=== PATIENT | male | born 1980 | race African-American/Black ===

== ENCOUNTER 2017-03-15 19:20 | Emergency (ER) | payer OTHER ==
[~2017-03-15] VITALS: Ht 180.3 cm; Wt 90.7 kg
[~2017-03-15 19:20] MED LIST: NOHOMEMEDICATIONS; NORCO 5-325 TA1 EACH PO
[2017-03-15] MEDS ORDERED: METFORMIN HCL500 MG PO (19:33)
[2017-03-15] MEDS ORDERED: GABAPENTIN 100100 MG PO (19:33)
[2017-03-15] MEDS ORDERED: NORCO 5-325 TA1 EACH PO (20:12)
== END 2017-03-15 20:44 | disposition home or self-care (01) ==
LOC: ER 19:20
DX: S16.1XXA Strain of muscle, fascia and tendon at neck level, initial encounter (principal); S13.4XXA Sprain of ligaments of cervical spine, initial encounter; M25.511 Pain in right shoulder; M54.12 Radiculopathy, cervical region; V49.9XXA Car occupant (driver) (passenger) injured in unspecified traffic accident, initial encounter; Y93.89 Activity, other specified; Y92.89 Other specified places as the place of occurrence of the external cause; Y99.8 Other external cause status

== ENCOUNTER 2018-08-04 18:03 | Emergency (ER) | payer OTHER ==
[~2018-08-04] VITALS: Ht 180.3 cm; Wt 99.8 kg
[2018-08-04 18:03] VITALS: BP 135/94
[~2018-08-04 18:03] MED LIST changes: +GABAPENTIN 100100 MG PO; +METFORMIN HCL500 MG PO
[2018-08-04] MEDS ORDERED: AMOXICILLIN 50500 MG PO (18:32)
[2018-08-04] MEDS ORDERED: IBUPROFEN 600600 M1 PO (18:32)
== END 2018-08-04 18:42 | disposition home or self-care (01) ==
LOC: ER 18:03
DX: J02.9 Acute pharyngitis, unspecified (principal)